=== PATIENT | male | born 1955 | race Caucasian/White ===

== ENCOUNTER 2016-12-22 07:16 | Emergency (ER) | payer BC ==
--- NOTE | 2016-12-22 07:24 | EDM.PDOC ---
ED HPI ENT - General Chief Complaint: ENT Problem Stated Complaint: [id number] PILL STUCK IN THROAT HARD TO BREATHE Time Seen by Provider: 12/22/16 07:23 Source of Information: Reports: Patient, Old records, RN, RN notes reviewed History Limitations: Reports: No limitations - History of Present Illness INITIAL COMMENTS - FREE TEXT/NARRATIVE: C/O a pill got stuck in throat. Pt reports a very irritating foreign body sensation. He took a large tablet of a men's supplement and feels it stuck at the level of/or just below the geremias's apple. Denies cough or aspiration. Able to drink water. 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) - Related Data Allergies/ADRs: Allergies Allergy/AdvReac Type Severity Reaction Status Date / Time cephalexin Allergy Hives Verified 12/22/16 07:28 sulindac [From Clinoril] Allergy Anaphylactic Verified 12/22/16 07:28 Shock Home Meds: Home Meds LORazepam 2 mg PO BEDTIME 12/22/16 [History] Pregabalin [Lyrica] 50 mg PO BEDTIME 12/22/16 [History] Past Medical History Psychiatric History: Reports: Anxiety Social & Family History - Family History Family Medical History: Noncontributory - Living Situation & Occupation Living situation: Reports: ED ROS ENT - Review of Systems Review Of Systems: ROS reveals no pertinent complaints other than HPI. ED EXAM, ENT - Physical Exam Exam: See Below Exam Limited By: No limitations General Appearance: alert, WD/WN, no apparent distress, anxious Nose: normal inspection Mouth/Throat: Normal inspection, Normal gums, Normal lips, Normal oropharynx, Normal teeth. No: Throat pain, Throat swelling Head: atraumatic, normocephalic Neck: normal inspection, supple, non-tender, full range of motion. No: lymphadenopathy (L), lymphadenopathy (R) Respiratory/Chest: no respiratory distress, lungs clear, normal breath sounds, no accessory muscle use, chest non-tender Cardiovascular: regular rate, rhythm Neurological: alert, oriented, CN II-XII intact, no motor/sensory deficits Psychiatric: normal affect, anxious Skin: Warm, Dry Course - Vital Signs Last Recorded V/S: Last Vital Signs Temp 35.9 C 12/22/16 07:30 Pulse 91 12/22/16 07:30 Resp 16 12/22/16 07:30 BP 127/77 12/22/16 07:30 Pulse Ox 96 12/22/16 07:30 - Orders/Labs/Meds Orders: Active Orders 24 hr Category Date Time Status Peripheral IV Care [RC] . DIRECTED Care 12/22/16 07:29 Active Neck Soft Tissue [CR] Stat Exams 12/22/16 07:29 Taken Sodium Chloride 0.9% [Saline Flush] Med 12/22/16 07:29 Active 10 ml FLUSH ASDIRECTED PRN Peripheral IV Insertion Adult [OM.PC] Stat Oth 12/22/16 07:29 Ordered Medication Orders Sodium Chloride (Saline Flush) 10 ml FLUSH ASDIRECTED PRN PRN Reason: Keep Vein Open Last Admin: 12/22/16 07:47 Dose: 10 ml Meds: Medications Generic Name Dose Route Start Last Admin Trade Name Freq PRN Reason Stop Dose Admin Sodium Chloride 10 ml 12/22/16 07:29 12/22/16 07:47 Saline Flush FLUSH 10 ml ASDIRECTED PRN Administration Keep Vein Open Discontinued Medications Generic Name Dose Route Start Last Admin Trade Name Freq PRN Reason Stop Dose Admin Al Hydroxide/Mg Hydroxide 30 ml 12/22/16 08:00 12/22/16 08:14 Gi Cocktail PO 12/22/16 08:01 30 ml ONETIME ONE Administration Dexamethasone 20 mg 12/22/16 08:09 Dexamethasone IVPUSH 12/22/16 08:10 ONETIME ONE Glucagon 1 mg 12/22/16 07:29 12/22/16 07:47 Glucagen IVPUSH 12/22/16 07:30 1 mg ONETIME ONE Administration - Radiology Interpretation Free Text/Narrative:: Xray soft tissue neck: no FB per Rad. report. Departure - Departure Time of Disposition: 08:15 Disposition: Home, Self-Care 01 Condition: good Clinical Impression: Esophageal foreign body Qualifiers: Encounter type: initial encounter Qualified Code(s): T18.108A - Unspecified foreign body in esophagus causing other injury, initial encounter Instructions: Swallowed Foreign Body, Adult Forms: ED Department Discharge Additional Instructions: Ice chips and ice water sips until esophageal foreign body sensation resolves. Liquid and soft diet for the next 2 to 3 days. Follow up in clinic if not improved in 24 hours. - My Orders Last 24 Hours: My Active Orders 12/22/16 07:29 Peripheral IV Care [RC] . DIRECTED Neck Soft Tissue [CR] Stat Sodium Chloride 0.9% [Saline Flush] 10 ml FLUSH ASDIRECTED PRN Peripheral IV Insertion Adult [OM.PC] Stat - Assessment/Plan Last 24 Hours: My Active Orders 12/22/16 07:29 Peripheral IV Care [RC] . DIRECTED Neck Soft Tissue [CR] Stat Sodium Chloride 0.9% [Saline Flush] 10 ml FLUSH ASDIRECTED PRN Peripheral IV Insertion Adult [OM.PC] Stat
[2016-12-22] MEDS ORDERED: Sodium Chloride 0.9% 10 ML Syringe FLUSH PRN (07:29)
[2016-12-22] MEDS ORDERED: Glucagon,Human Recombinant 1 MG Vial IVPUSH ONE (07:29)
[2016-12-22 07:32] VITALS: BP 127/77
[2016-12-22] MEDS ORDERED: GI Cocktail Oral Solution 30 ML PO ONE ×2 (08:00→08:38)
[2016-12-22] MEDS ORDERED: Dexamethasone 4 MG/ML SDV IVPUSH ONE (08:09)
== END 2016-12-22 08:42 | disposition home or self-care (01) ==
LOC: DL.ED 07:16
DX: T18.108A Unspecified foreign body in esophagus causing other injury, initial encounter (principal); F41.9 Anxiety disorder, unspecified; Z88.8 Allergy status to other drugs, medicaments and biological substances
CPT/HCPCS: 70360; 96374; 96375; 99283; A9270; J1100; J1610; J7050

== ENCOUNTER 2017-08-15 13:41 | Emergency (ER) | payer BC ==
[2017-08-15] MEDS ORDERED: Sodium Chloride 0.9% 10 ML Syringe FLUSH PRN (14:08)
[2017-08-15] MEDS ORDERED: Sodium Chloride 0.9% 1,000 ML IV ONE ×2 (14:10→15:42)
[2017-08-15] MEDS ORDERED: Iopamidol 612 MG/ML 75 ML Bottle IVPUSH ONE (14:53)
[2017-08-15 15:00] LABS: ANION GAP 11.4; CHLORIDE,CL 102 mmol/L (101-111); SODIUM,NA 136 mmol/L (135-145)
[2017-08-15] MEDS ORDERED: Levofloxacin/Dextrose 5%-Water 500 MG in Premix Bag 1 BAG IV ONE (15:46)
[2017-08-15 15:50] VITALS: BP 117/71
--- NOTE | 2017-08-15 16:06 | EDM.PDOC ---
Scribed by Celina Jeronimo 08/15/17 [id number] for Leila Lennon NP ED HPI GENERAL MEDICAL PROBLEM - General Chief Complaint: Fever Stated Complaint: FEVER X 1 WEEK Time Seen by Provider: 08/15/17 13:59 Source of Information: Reports: Patient, RN, RN Notes Reviewed History Limitations: Reports: No Limitations - History of Present Illness INITIAL COMMENTS - FREE TEXT/NARRATIVE: Patient presents to the ER with complaint of fever/flu symptoms as well as fever. Symptoms began5 weeks ago, got better then last Thursday worse again. He has fever up to 101.7, chills and heavy in chest (shortness of breath), He has pain in eye muscles. He has had no nausea, vomiting or diarrhea, Patient states urine is dark yellow/brown. He has used no antihistamines. He has taken Tylenol and ibuprofen for fever and generalized ache. Coworkers have also had influenza. Location: Reports: Other (generalized) Quality: Reports: Ache Severity: Moderate Improves with: Reports: None Worsens with: Reports: None Associated Symptoms: Reports: No Other Symptoms Left Upper Abdominal Pain Score (Numeric/FACES): 4 - Related Data Allergies Allergy/AdvReac Type Severity Reaction Status Date / Time cephalexin Allergy Hives Verified 08/15/17 13:49 sulindac [From Clinoril] Allergy Anaphylactic Verified 08/15/17 13:49 Shock Home Meds: Home Meds LORazepam 2 mg PO BEDTIME 12/22/16 [History] Amoxicillin/Potassium Clav [Augmentin 500-125 Tablet] 1 each PO BID 08/15/17 [ History] Past Medical History Gastrointestinal History: Reports: Diverticulosis Neurological History: Reports: Neuropathy, Peripheral Other Neuro History: neuropathy Psychiatric History: Reports: Anxiety Other Oncologic History: osteopenia - Infectious Disease History Infectious Disease History: Reports: None Social & Family History - Family History Family Medical History: Noncontributory - Tobacco Use Smoking Status *Q: Never Smoker Second Hand Smoke Exposure: No - Caffeine Use Caffeine Use: Reports: None - Recreational Drug Use Recreational Drug Use: No - Living Situation & Occupation Living situation: Reports: ED ROS GENERAL - Review of Systems Review Of Systems: ROS reveals no pertinent complaints other than HPI. ED EXAM, GENERAL - Physical Exam Exam: See Below Exam Limited By: No Limitations General Appearance: Alert, WD/WN, No Apparent Distress Eye Exam: Bilateral Eye: Normal Inspection Ears: Normal External Exam, Normal Canal, Hearing Grossly Normal, Normal TMs Nose: Normal Inspection, Normal Mucosa, No Blood Throat/Mouth: Normal Inspection, Normal Lips, Normal Teeth, Normal Gums, Normal Oropharynx, Normal Voice, No Airway Compromise Head: Atraumatic, Normocephalic Neck: Normal Inspection, Supple, Non-Tender, Full Range of Motion Respiratory/Chest: Lungs Clear Cardiovascular: Regular Rate, Rhythm GI/Abdominal: Other (tender right upper quadrant.) (Male) Exam: Deferred Rectal (Males) Exam: Deferred Back Exam: Normal Inspection, Full Range of Motion, NT Extremities: Normal Inspection, Normal Range of Motion, Non-Tender, Normal Capillary Refill, No Pedal Edema Neurological: Alert, Oriented, CN II-XII Intact, Normal Cognition, Normal Gait, Normal Reflexes, No Motor/Sensory Deficits Psychiatric: Normal Affect, Normal Mood Skin Exam: Warm, Dry, Intact, Normal Color, No Rash Lymphatic: No Adenopathy Course - Vital Signs Last Recorded V/S: Last Vital Signs Temp 98.4 F 08/15/17 15:48 Pulse 99 08/15/17 15:48 Resp 16 08/15/17 15:48 BP 117/71 08/15/17 15:48 Pulse Ox 99 08/15/17 15:48 - Orders/Labs/Meds Orders: Active Orders 24 hr Category Date Time Status Peripheral IV Care [RC] . DIRECTED Care 08/15/17 14:10 Active Abdomen Pelvis w Cont [CT] Urgent Exams 08/15/17 14:11 Taken CULTURE BLOOD [BC] Stat Lab 08/15/17 14:21 Received CULTURE BLOOD [BC] Stat Lab 08/15/17 14:27 Received CULTURE STREP A CONFIRMATION [RM] Stat Lab 08/15/17 14:22 Results STREP SCRN A RAPID W CULT CONF [] Stat Lab 08/15/17 14:22 Results Levofloxacin/Dextrose 5%-Water [Levaquin in D5W 500 MG/ Med 08/15/17 15:46 Active 100 ML] 500 mg Premix Bag 1 bag IV ONETIME Sodium Chloride 0.9% [Normal Saline] 1,000 ml Med 08/15/17 15:42 Active IV .BOLUS Sodium Chloride 0.9% [Saline Flush] Med 08/15/17 14:08 Active 10 ml FLUSH ASDIRECTED PRN Blood Culture x2 Reflex Set [OM.PC] Stat Oth 08/15/17 14:10 Ordered Peripheral IV Insertion Adult [OM.PC] Stat Oth 08/15/17 14:10 Ordered Medication Orders Levofloxacin/Dextrose 500 mg/ (Premix) 100 mls @ 100 mls/hr IV ONETIME ONE Stop: 08/15/17 16:45 Last Admin: 08/15/17 15:55 Dose: 100 mls/hr Sodium Chloride (Normal Saline) 1,000 mls @ 150 mls/hr IV .BOLUS ONE Stop: 08/15/17 22:21 Last Admin: 08/15/17 15:51 Dose: 150 mls/hr Sodium Chloride (Saline Flush) 10 ml FLUSH ASDIRECTED PRN PRN Reason: Keep Vein Open Labs: Laboratory Tests 08/15/17 08/15/17 08/15/17 Range/Units 14:15 14:21 14:21 WBC 5.4 (5.0-10.0) 10^3/uL RBC 4.40 L (4.6-6.2) 10^6/uL Hgb 13.8 L (14.0-18.0) g/dL Hct 40.7 (40.0-54.0) % MCV 92.5 (80-100) fL MCH 31.4 (27.0-34.0) pg MCHC 33.9 (33.0-35.0) g/dL Plt Count 91 L (150-450) 10^3/uL Neut % (Auto) 34.4 L (42.2-75.2) % Lymph % (Auto) 49.3 (20.5-50.1) % [place] % (Auto) 15.3 H (2-8) % Eos % (Auto) 0.4 L (1.0-3.0) % Baso % (Auto) 0.6 (0.0-1.0) % Add Manual Diff Yes Neutrophils % (Manual) 18 L (42-75) % Band Neutrophils % 16 % Lymphocytes % (Manual) 55 H (20-50) % Monocytes % (Manual) 8 (2-8) % Metamyelocytes % 2 Myelocytes % 1 Atypical Lymphocytes Moderate Toxic Granulation 1+ slight Platelet Estimate Decreased PT (9.0-12.0) SEC INR (0.9-1.2) Sodium 136 (135-145) mmol/L Potassium 3.4 L (3.6-5.0) mmol/L Chloride 102 (101-111) mmol/L Carbon Dioxide 26.0 (21.0-31.0) mmol/L Anion Gap 11.4 BUN 19 H (7-18) mg/dL Creatinine 1.0 (0.6-1.3) mg/dL Est Cr Clr Drug Dosing 74.69 mL/min Estimated GFR (MDRD) > 60 BUN/Creatinine Ratio 19.00 Glucose 150 H (74-105) mg/dL Lactic Acid (0.5-2.2) mmol/L Calcium 8.6 (8.4-10.2) mg/dl Total Bilirubin 1.1 H (0.2-1.0) mg/dL AST 249 H (10-42) IU/L ALT 298 H (10-60) IU/L Alkaline Phosphatase 323 H (42-121) IU/L Lactate Dehydrogenase (91-180) IU/L Total Protein 6.4 L (6.7-8.2) g/dl Albumin 3.5 (3.2-5.5) g/dl Globulin 2.9 Albumin/Globulin Ratio 1.21 Amylase (28-100) U/L Lipase (22-51) U/L Urine Color Dark yellow (YELLOW) Urine Appearance Clear (CLEAR) Urine pH 6.0 (5.0-9.0) Ur Specific [place] 1.015 (1.005-1.030) Urine Protein 30 H (NEGATIVE) Urine Glucose (UA) Negative (NEGATIVE) Urine Ketones Trace H (NEGATIVE) Urine Occult Blood Trace-intact H (NEGATIVE) Urine Nitrite Negative (NEGATIVE) Urine Bilirubin Small H (NEGATIVE) Urine Urobilinogen 0.2 (0.2-1.0) mg/dL Ur Leukocyte Esterase Negative (NEGATIVE) Urine RBC 0-5 /HPF Urine WBC 0-5 (0-5/HPF) /HPF Ur Epithelial Cells Rare /HPF Urine Bacteria Moderate H (0-FEW/HPF) /HPF Urine Mucus Moderate H /LPF Monoscreen Negative 08/15/17 08/15/17 08/15/17 Range/Units 14:21 14:21 14:21 WBC (5.0-10.0) 10^3/uL RBC (4.6-6.2) 10^6/uL Hgb (14.0-18.0) g/dL Hct (40.0-54.0) % MCV (80-100) fL MCH (27.0-34.0) pg MCHC (33.0-35.0) g/dL Plt Count (150-450) 10^3/uL Neut % (Auto) (42.2-75.2) % Lymph % (Auto) (20.5-50.1) % [place] % (Auto) (2-8) % Eos % (Auto) (1.0-3.0) % Baso % (Auto) (0.0-1.0) % Add Manual Diff Neutrophils % (Manual) (42-75) % Band Neutrophils % % Lymphocytes % (Manual) (20-50) % Monocytes % (Manual) (2-8) % Metamyelocytes % Myelocytes % Atypical Lymphocytes Toxic Granulation Platelet Estimate PT 10.8 (9.0-12.0) SEC INR 1.1 (0.9-1.2) Sodium (135-145) mmol/L Potassium (3.6-5.0) mmol/L Chloride (101-111) mmol/L Carbon Dioxide (21.0-31.0) mmol/L Anion Gap BUN (7-18) mg/dL Creatinine (0.6-1.3) mg/dL Est Cr Clr Drug Dosing mL/min Estimated GFR (MDRD) BUN/Creatinine Ratio Glucose (74-105) mg/dL Lactic Acid 1.7 (0.5-2.2) mmol/L Calcium (8.4-10.2) mg/dl Total Bilirubin (0.2-1.0) mg/dL AST (10-42) IU/L ALT (10-60) IU/L Alkaline Phosphatase (42-121) IU/L Lactate Dehydrogenase 435 H (91-180) IU/L Total Protein (6.7-8.2) g/dl Albumin (3.2-5.5) g/dl Globulin Albumin/Globulin Ratio Amylase 70 (28-100) U/L Lipase 33 (22-51) U/L Urine Color (YELLOW) Urine Appearance (CLEAR) Urine pH (5.0-9.0) Ur Specific [place] (1.005-1.030) Urine Protein (NEGATIVE) Urine Glucose (UA) (NEGATIVE) Urine Ketones (NEGATIVE) Urine Occult Blood (NEGATIVE) Urine Nitrite (NEGATIVE) Urine Bilirubin (NEGATIVE) Urine Urobilinogen (0.2-1.0) mg/dL Ur Leukocyte Esterase (NEGATIVE) Urine RBC /HPF Urine WBC (0-5/HPF) /HPF Ur Epithelial Cells /HPF Urine Bacteria (0-FEW/HPF) /HPF Urine Mucus /LPF Monoscreen Meds: Medications Generic Name Dose Route Start Last Admin Trade Name Freq PRN Reason Stop Dose Admin Levofloxacin/Dextrose 500 mg/ 100 mls @ 100 mls/hr 08/15/17 15:46 08/15/17 15 :55 Premix IV 08/15/17 16:45 100 mls/hr ONETIME ONE Administration Sodium Chloride 1,000 mls @ 150 mls/hr 08/15/17 15:42 08/15/17 15:51 Normal Saline IV 08/15/17 22:21 150 mls/hr .BOLUS ONE Administration Sodium Chloride 10 ml 08/15/17 14:08 Saline Flush FLUSH ASDIRECTED PRN Keep Vein Open Discontinued Medications Generic Name Dose Route Start Last Admin Trade Name Freq PRN Reason Stop Dose Admin Sodium Chloride 1,000 mls @ 999 mls/hr 08/15/17 14:10 08/15/17 14:24 Normal Saline IV 08/15/17 15:10 999 mls/hr .BOLUS ONE Administration Iopamidol 75 ml 08/15/17 14:53 Isovue-300 (61%) IVPUSH 08/15/17 14:54 ONETIME ONE - Radiology Interpretation Free Text/Narrative:: CT abdomen/pelvis: Fluid within the small bowel without evidence of mesternic lymphadenopathy or bowel wall thickening. This may reflect viral gastroenteritis in the appropriate clinical situation. Multiple areas of thickening of the gallbladder wall,findings may suggest adenomyomatsosis. Sigmoid diverticulosis. Increased fecal content in the colon. Incidenta/non- acute findings.See Radreport. Departure - Departure Time of Disposition: 15:41 Disposition: DC/Tfer to Acute Hospital 02 Condition: Serious Clinical Impression: Elevated liver enzymes Fever Qualifiers: Fever type: due to other condition Qualified Code(s): R50.81 - Fever presenting with conditions classified elsewhere - Discharge Information Forms: ED Department Discharge, Interfacility Transfer EMTALA - My Orders Last 24 Hours: My Active Orders 08/15/17 14:08 Sodium Chloride 0.9% [Saline Flush] 10 ml FLUSH ASDIRECTED PRN 08/15/17 14:10 Peripheral IV Care [RC] . DIRECTED Blood Culture x2 Reflex Set [OM.PC] Stat Peripheral IV Insertion Adult [OM.PC] Stat 08/15/17 14:11 Abdomen Pelvis w Cont [CT] Urgent 08/15/17 14:21 CULTURE BLOOD [BC] Stat 08/15/17 14:22 CULTURE STREP A CONFIRMATION [RM] Stat STREP SCRN A RAPID W CULT CONF [RM] Stat 08/15/17 14:27 CULTURE BLOOD [BC] Stat 08/15/17 15:42 Sodium Chloride 0.9% [Normal Saline] 1,000 ml IV .BOLUS 08/15/17 15:46 Levofloxacin/Dextrose 5%-Water [Levaquin in D5W 500 MG/100 ML] 500 mg Premix Bag 1 bag IV ONETIME - Assessment/Plan Last 24 Hours: My Active Orders 08/15/17 14:08 Sodium Chloride 0.9% [Saline Flush] 10 ml FLUSH ASDIRECTED PRN 08/15/17 14:10 Peripheral IV Care [RC] . DIRECTED Blood Culture x2 Reflex Set [OM.PC] Stat Peripheral IV Insertion Adult [OM.PC] Stat 08/15/17 14:11 Abdomen Pelvis w Cont [CT] Urgent 08/15/17 14:21 CULTURE BLOOD [BC] Stat 08/15/17 14:22 CULTURE STREP A CONFIRMATION [RM] Stat STREP SCRN A RAPID W CULT CONF [RM] Stat 08/15/17 14:27 CULTURE BLOOD [BC] Stat 08/15/17 15:42 Sodium Chloride 0.9% [Normal Saline] 1,000 ml IV .BOLUS 08/15/17 15:46 Levofloxacin/Dextrose 5%-Water [Levaquin in D5W 500 MG/100 ML] 500 mg Premix Bag 1 bag IV ONETIME I have read and agree with the documentation that has been completed regarding this visit. By signing this record, I attest that the documentation was completed in my physical presence and is an accurate record of the encounter.
== END 2017-08-15 16:11 ==
LOC: DL.ED 13:41
DX: R79.89 Other specified abnormal findings of blood chemistry (principal); R50.81 Fever presenting with conditions classified elsewhere; Z88.1 Allergy status to other antibiotic agents; Z79.899 Other long term (current) drug therapy
CPT/HCPCS: 36415; 74177; 80053; 81001; 82150; 83605; 83615; 83690; 85025; 85610; 86308; 87040; 87081; 87430; 96361; 96365; 99285; J1956; J7030; Q9967

== ENCOUNTER 2019-08-13 21:28 | Emergency (ER) | payer BC ==
[2019-08-13 21:45] VITALS: BP 145/86; PULSE 103
[2019-08-13 22:14] LABS: ANION GAP 12.7; CHLORIDE,CL 102 mmol/L (101-111); SODIUM,NA 138 mmol/L (135-145)
--- NOTE | 2019-08-13 23:12 | EDM.PDOC ---
ED HPI GENERAL MEDICAL PROBLEM - General Chief Complaint: Cardiovascular Problem Stated Complaint: HIGH BP Time Seen by Provider: 08/13/19 23:10 Source of Information: Reports: Patient History Limitations: Reports: No Limitations - History of Present Illness INITIAL COMMENTS - FREE TEXT/NARRATIVE: sudden onset recurrent episode of palpitation and higher than normal BP. states normally BP 120s/60-70 and HR 70s. this time BP 150s/80s and HR 110s. spouse states this is the 3rd episode over past month and did not have it checked since things returned to normal. pt denies CP/SOB/STINSON. no discomfort. discussed with pt the necessity of doing; stress test, echocardiogram and holter monitor for further work up. pt states he had a rather active day and that could be the cause, but will follow up with family doctor for those tests. right now he is feeling much improved. 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 - Related Data Allergies Allergy/AdvReac Type Severity Reaction Status Date / Time cephalexin Allergy Hives Verified 08/13/19 21:37 sulindac [From Clinoril] Allergy Anaphylactic Verified 08/13/19 21:37 Shock Home Meds: Home Meds LORazepam 2 mg PO BEDTIME PRN 12/22/16 [History] Past Medical History Gastrointestinal History: Reports: Diverticulosis, Hemorrhoids Neurological History: Reports: Neuropathy, Peripheral Other Neuro History: neuropathy Psychiatric History: Reports: Anxiety Other Oncologic History: osteopenia - Infectious Disease History Infectious Disease History: Reports: None Social & Family History - Family History Family Medical History: Noncontributory - Tobacco Use Smoking Status *Q: Never Smoker Second Hand Smoke Exposure: No - Caffeine Use Caffeine Use: Reports: None - Recreational Drug Use Recreational Drug Use: No - Living Situation & Occupation Living situation: Reports: ED ROS GENERAL - Review of Systems Review Of Systems: Comprehensive ROS is negative, except as noted in HPI. ED EXAM, GENERAL - Physical Exam Exam: See Below Exam Limited By: No Limitations General Appearance: Alert, WD/WN, No Apparent Distress Eye Exam: Bilateral Eye: PERRL (pupils ER @ 4mm) Ears: Hearing Grossly Normal Throat/Mouth: Normal Voice, No Airway Compromise Head: Atraumatic Neck: Non-Tender, Full Range of Motion Respiratory/Chest: No Respiratory Distress Cardiovascular: Regular Rate, Rhythm GI/Abdominal: Soft Neurological: Alert, Oriented, Normal Cognition, Normal Gait, No Motor/Sensory Deficits Psychiatric: Normal Affect, Normal Mood Skin Exam: Warm, Dry, Normal Color Lymphatic: No Adenopathy Course - Vital Signs Last Recorded V/S: Last Vital Signs Temp 37.0 C 08/13/19 21:44 Pulse 103 H 08/13/19 21:44 Resp 20 08/13/19 21:44 BP 145/86 H 08/13/19 21:44 Pulse Ox 94 L 08/13/19 21:44 - Orders/Labs/Meds Orders: Active Orders 24 hr Category Date Time Status EKG 12 Lead [EKG Documentation Completion] [RC] STAT Care 08/13/19 21:42 Active Labs: Laboratory Tests 08/13/19 08/13/19 08/13/19 Range/Units 21:50 21:50 21:50 WBC 10.5 H (5.0-10.0) 10^3/uL RBC 4.42 L (4.6-6.2) 10^6/uL Hgb 14.0 (14.0-18.0) g/dL Hct 41.3 (40.0-54.0) % MCV 93.4 (80-100) fL MCH 31.7 (27.0-34.0) pg MCHC 33.9 (33.0-35.0) g/dL Plt Count 195 D (150-450) 10^3/uL Neut % (Auto) 66.1 (42.2-75.2) % Lymph % (Auto) 21.5 (20.5-50.1) % [place] % (Auto) 10.0 H (2-8) % Eos % (Auto) 2.1 (1.0-3.0) % Baso % (Auto) 0.3 (0.0-1.0) % PT 10.0 (9.0-12.0) SEC INR 1.0 (0.9-1.2) Sodium 138 (135-145) mmol/L Potassium 3.7 (3.6-5.0) mmol/L Chloride 102 (101-111) mmol/L Carbon Dioxide 27.0 (21.0-31.0) mmol/L Anion Gap 12.7 BUN 25 H (7-18) mg/dL Creatinine 1.0 (0.6-1.3) mg/dL Est Cr Clr Drug Dosing 77.06 mL/min Estimated GFR (MDRD) > 60 BUN/Creatinine Ratio 25.00 Glucose 99 (74-105) mg/dL Calcium 8.7 (8.4-10.2) mg/dl Total Bilirubin 0.6 (0.2-1.0) mg/dL AST 24 (10-42) IU/L ALT 25 (10-60) IU/L Alkaline Phosphatase 41 L (42-121) IU/L Troponin I < 0.02 (0.00-0.02) ng/ml Total Protein 6.6 L (6.7-8.2) g/dl Albumin 3.9 (3.2-5.5) g/dl Globulin 2.7 Albumin/Globulin Ratio 1.44 - Re-Assessments/Exams Free Text/Narrative Re-Assessment/Exam: 08/13/19 23:10 results discussed with pt who is feeling much better presently with BP & HR returning back to normality. Departure - Departure Time of Disposition: 23:17 Disposition: Home, Self-Care 01 Condition: Good Clinical Impression: Palpitations Hypertension Qualifiers: Hypertension type: unspecified Qualified Code(s): I10 - Essential (primary) hypertension Instructions: Hypertension, [id number] Referrals: Antonia Tan MD [Primary Care Provider] - Forms: ED Department Discharge Additional Instructions: 1) rest and avoid vigorous activities next 48 hours 2) recheck if there is any change or concern Sepsis Event Note - Evaluation Sepsis Screening Result: No Definite Risk - Focused Exam Date Exam was Performed: 08/14/19 Time Exam was Performed: 19:19 - My Orders Last 24 Hours: My Active Orders 08/13/19 21:42 EKG 12 Lead [EKG Documentation Completion] [RC] STAT - Assessment/Plan Last 24 Hours: My Active Orders 08/13/19 21:42 EKG 12 Lead [EKG Documentation Completion] [RC] STAT
== END 2019-08-13 23:17 | disposition home or self-care (01) ==
LOC: DL.ED 21:28
DX: I10 Essential (primary) hypertension (principal); R00.2 Palpitations; K57.90 Diverticulosis of intestine, part unspecified, without perforation or abscess without bleeding; F41.9 Anxiety disorder, unspecified; M85.80 Other specified disorders of bone density and structure, unspecified site; Z88.1 Allergy status to other antibiotic agents; Z79.899 Other long term (current) drug therapy; Z88.8 Allergy status to other drugs, medicaments and biological substances
CPT/HCPCS: 36415; 80053; 84484; 85025; 85610; 93005; 99285-25

== ENCOUNTER 2022-01-06 17:32 | Emergency (ER) | payer OTHER, MEDICARE, BC ==
[2022-01-06] MEDS ORDERED: Acetaminophen/HYDROcodone 325-5 MG Tab PO ONE (17:33)
[2022-01-06] MEDS ORDERED: Ondansetron 4 MG Tab.DIS PO ONE (17:33)
[2022-01-06] MEDS ORDERED: Ketorolac 30 MG/ML SDV IM ONE (18:07)
[2022-01-06] MEDS ORDERED: Ondansetron 4 MG Tab.DIS ONE (20:05)
[2022-01-06] MEDS ORDERED: Acetaminophen/HYDROcodone 325-5 MG Tab ONE (20:05)
[2022-01-06 20:18] VITALS: BP 165/100; PULSE 88
== END 2022-01-06 20:14 | disposition home or self-care (01) ==
LOC: DL.ED 17:32
DX: S43.102A Unspecified dislocation of left acromioclavicular joint, initial encounter (principal); S22.42XA Multiple fractures of ribs, left side, initial encounter for closed fracture; Z86.16 Personal history of COVID-19; Z79.899 Other long term (current) drug therapy; Z88.1 Allergy status to other antibiotic agents; Z88.6 Allergy status to analgesic agent; V86.99XA Unspecified occupant of other special all-terrain or other off-road motor vehicle injured in nontraffic accident, initial encounter; Y92.410 Unspecified street and highway as the place of occurrence of the external cause
CPT/HCPCS: 71101; 73030; 96372; 99284; A9270; J1885